=== PATIENT | male | born 1960 | race Caucasian/White ===

== ENCOUNTER 2017-03-20 08:52 | Day surgery (SDC) | payer OTHER ==
[~2017-03-20 08:52] MED LIST: LACTATED RINGERS 1,000 ML IV SCH
[2017-03-20 09:30] VITALS: RESP 18; TEMP 97
[2017-03-20] MEDS ORDERED: PROPOFOL 10 MG/ML 20 ML VIAL IV ONE (10:37)
--- NOTE | 2017-03-20 10:49 | P.GSHP ---
History of Present Illness H&P Date: 03/20/17 Chief Complaint: Colon cancer screening Patient here today for screening colonoscopy. He has not had one previously. No bowel related complaints. He has a family history of colon cancer in his grandmother. No history of colon polyps. Past Medical History Past Medical History: Hypertension Additional Past Medical History / Comment(s): CHRONIC LOWER BACK History of Any Multi-Drug Resistant Organisms: None Reported Past Surgical History: Appendectomy, Orthopedic Surgery, Tonsillectomy Additional Past Surgical History / Comment(s): ORIF TIB/FIB. Past Anesthesia/Blood Transfusion Reactions: No Reported Reaction Past Psychological History: No Psychological Hx Reported Smoking Status: Former smoker Past Alcohol Use History: None Reported Additional Past Alcohol Use History / Comment(s): QUIT ABOUT 10 YRS AGO, SMOKED FOR 30 YRS, 1PPD Past Drug Use History: None Reported Medications and Allergies Home Medications Medication Instructions Recorded Confirmed Type Metoprolol Succinate (ER) [Toprol 25 mg PO HS 03/17/17 03/17/17 History XL] Naproxen Sodium [Anaprox DS] 550 mg PO Q12HR PRN 03/17/17 03/17/17 History [place]-3 Acid Ethyl Esters [Lovaza] 1 gm PO BID 03/17/17 03/17/17 History Allergies Allergy/AdvReac Type Severity Reaction Status Date / Time No Known Allergies Allergy Verified 03/17/17 15:56 Surgical - Exam Vital Signs Temp Pulse Resp BP Pulse Ox 97 F L 104 H 18 129/84 98 03/20/17 09:21 03/20/17 09:21 03/20/17 09:21 03/20/17 09:21 03/20/17 09:21 Physical exam: General: Well-developed, well-nourished HEENT: Normocephalic, sclerae nonicteric Abdomen: Nontender, nondistended Extremities: No edema Neuro: Alert and oriented Assessment and Plan (1) Colon cancer screening Narrative/Plan: Will proceed with colonoscopy at this time. Current Visit: Yes Status: Acute Code(s): Z12.11 - ENCOUNTER FOR SCREENING FOR MALIGNANT NEOPLASM OF COLON SNOMED Code(s): 191640215
--- NOTE | 2017-03-20 11:06 | P.PCN ---
Date of Procedure: 03/20/17 Procedure(s) Performed: PREOPERATIVE DIAGNOSIS: Colon cancer screening POSTOPERATIVE DIAGNOSIS: Colon polyps, diverticulosis, internal hemorrhoids PROCEDURE: Colonoscopy with snare polypectomy ANESTHESIA: MAC SURGEON: Varghese Brooks M.D. SPECIMENS: Polyps ENDOSCOPIC PROCEDURE: The patient was placed on the endoscopy table in the left decubitus position. The Olympus colonoscope was inserted into the anus and passed under direct visualization to the base of the cecum. The appendiceal orifice was visualized. From that point the scope was slowly withdrawn inspecting all surfaces carefully. There were no neoplastic inflammatory or polypoid lesions throughout the cecum, ascending, transverse, and descending colon. In the sigmoid colon at 25 cm there was a pedunculated polyp that was removed using the snare with cautery technique. In the rectum proximally there was a grouping of 4 small polyps were all removed in a similar fashion and sent together. The remainder the rectum appeared normal. The patient had small internal hemorrhoids present without evidence of recent or active bleeding. The patient also had mild left-sided diverticulosis present. Digital rectal examination was normal. The patient was taken to the recovery room in stable condition per anesthesia guidelines. RECOMMENDATIONS: Await biopsy results. Follow-up colonoscopy 3-5 years.
[2017-03-20 11:35] VITALS: BP 153/76; PULSE 93
== END 2017-03-20 11:56 | disposition home or self-care (01) ==
LOC: ORWHC2ENDO 08:52
PROVIDERS: ATTEND Surgery
DX: Z12.11 Encounter for screening for malignant neoplasm of colon (principal); D12.5 Benign neoplasm of sigmoid colon; K57.30 Diverticulosis of large intestine without perforation or abscess without bleeding; D36.9 Benign neoplasm, unspecified site; K62.1 Rectal polyp; K64.8 Other hemorrhoids; I10 Essential (primary) hypertension; M54.5 Low back pain; G89.29 Other chronic pain; Z80.0 Family history of malignant neoplasm of digestive organs; Z87.891 Personal history of nicotine dependence; Z79.899 Other long term (current) drug therapy
CPT/HCPCS: 45385; 88305; J2704

== ENCOUNTER → 2019-05-06 | Outpatient (CLI) | payer OTHER ==
--- NOTE | 2019-05-06 17:56 | MR ---
EXAMINATION TYPE: MR lumbar spine wo con DATE OF EXAM: 05/06/2019 COMPARISON: NONE HISTORY: Low back pain into rt leg, DDD with Radiculopathy TECHNIQUE: Multiplanar, multisequence imaging of the lumbar spine is performed without IV contrast. FINDINGS: Sagittal images of the lumbar spine show vertebral body heights and alignment to appear sat isfactory. Multilevel disc desiccation is present moderately advanced disc space narrowing L3-L4 and L4-L5 levels. Moderate disc space narrowing at L2-L3 level. Mild 2 moderate multilevel anterior spur ring. The conus medullaris is normal in position and signal ending superior L1 level. The bone marro w signal intensity is overall heterogeneous with heterogeneous Modic type II endplate changes posteri or right L4-L5 level. Small hemangioma L3 vertebra sagittal image 8. Axial images at T12-L1 level is thought within normal limits. Axial images at L1-L2 level show mild/m oderate broad disc bulge effacing the anterior thecal sac on axial image 23. Axial images at L2-L3 level show moderate broad-based posterior disc protrusion effacing anterior the nils sac on axial image 18 and causing [id number] bilateral anterior inferior neural foraminal n arrowing encroaching near both exiting L2 nerves confirm sagittal image 12 and 3. Axial images at the L3-L4 level show moderate to severe broad disc bulge with [id number] facet degenerative change and ligamentum flavum hypertrophy. There is effacement of the anterior and supervisor plate pasting ior lateral thecal sac. There is moderate bilateral anterior inferior neural foraminal narrowing. Axial images at the L4-L5 level show moderate facet arthropathy and ligamentum flavum hypertrophy wit h moderate to advanced broad disc bulge. There is effacement of the anterior and posterior lateral th ecal sac along with mild to moderate left and moderate to advanced right-sided neural foraminal narro wing, encroachment along the right inferior L4 nerve is felt present sagittal image 12 and axial imag e 8. Axial images at the L5-S1 level show moderate facet arthropathy bilaterally. Spinal canal preserved. Bilateral neuroforamina patent. Paraspinal muscle bulk is preserved. No suspicious incidental retroperitoneal findings IMPRESSION: Multilevel degenerative changes with greatest findings noted L2-L3 through the L4-L5 leve ls as detailed above.
== END | disposition home or self-care (01) ==
LOC: RADMRIMAIN 16:45
PROVIDERS: ATTEND Physical Medicine & Rehabilitation
DX: M47.26 Other spondylosis with radiculopathy, lumbar region (principal); M43.16 Spondylolisthesis, lumbar region; M51.17 Intervertebral disc disorders with radiculopathy, lumbosacral region
CPT/HCPCS: 72148

== ENCOUNTER → 2022-07-21 | Outpatient (CLI) | payer OTHER ==
[2022-07-21 15:13] LABS: Partial Thromboplastin Time 23.6 sec (22.0-30.0); Prothrombin Time 10.6 sec (9.0-12.0)
--- NOTE | 2022-07-21 22:41 | CT ---
EXAMINATION TYPE: CT right knee - [facility] Protocol DATE OF EXAM: 07/21/2022 COMPARISON: None HISTORY: 62-year-old male RT knee pain. [facility] KNEE protocol CT DLP: 712 mGycm. Automated exposure control for dose reduction was used. TECHNIQUE: CT of the right knee for surgical planning purposes. Additional views through the bilatera l hips and bilateral ankles per the scanning protocol. Coronal and sagittal reconstructions performed . FINDINGS: In the pelvis, there is sigmoid diverticulosis and prostatomegaly up to 5.3 cm wide. Mild degenerativ e spurring of both hips. At the right knee, there is tricompartmental degenerative change with a small Johnston's cyst containing a 6 mm loose body. Moderate to large knee joint effusion is present. At the left ankle, there is partially visualized antegrade intramedullary nail extending to the dista l tibial metadiaphysis. IMPRESSION: 1. Tricompartmental OA right knee with a moderate to large joint effusion and a small Johnston's cyst. Imaging for surgical planning purposes. 2. Mild degenerative spurring of both hips. 3. Incidental: Sigmoid diverticulosis and prostatomegaly at 5.3 cm wide.
[2022-07-22 01:48] LABS: Appearance,Urine Cloudy (Clear); Bilirubin,Urine Negative (Negative); Blood,Urine Negative (Negative); Color,Urine Yellow (Yellow); Ketones,Urine Negative (Negative); Nitrite,Urine Negative (Negative); PH, Urine 7.5 (5.0-8.0); Specific Gravity,Urine 1.018 (1.001-1.030); Urobilinogen,Urine 0.2 (0.2,1.0)
[2022-07-22 01:55] LABS: Bacteria,Urine None Seen /HPF (None Seen)
[2022-07-22 02:20] LABS: Albumin 4.5 g/dL (3.8-4.9); Albumin/Globulin Ratio 2.14 (1.60-3.17); Anion Gap 11.7 mmol/L (10.00-18.00); BUN/Creat Ratio 21.57 Ratio (12.00-20.00); Blood Urea Nitrogen 15.1 mg/dL (9.0-27.0); Calcium 9.6 mg/dL (8.7-10.3); Carbon Dioxide 26.3 mmol/L (20.0-27.5); Globulin 2.1 g/dL (1.6-3.3); Non-African American GFR(CKD) 101.9 (60.0-200.0); Potassium 4.6 mmol/L (3.5-5.5); Total Bilirubin 0.2 mg/dL (0.30-1.20); Total Protein 6.6 g/dL (6.2-8.2)
[2022-07-22 02:50] LABS: HCT 45.8 % (39.6-50.0); HGB 15.6 g/dL (13.0-17.0); MCH 30.5 pg (27.0-32.0); MCHC 34.1 g/dL (32.0-37.0); MCV 89.5 fL (80.0-97.0); Mean Platelet Volume 10.2 fL (9.5-12.2); NRBC Per 100 WBC 0 /100 WBCS (0.0-0.0); Platelet Count 183 X 10*3/uL (140-440); RBC 5.12 X 10*6/uL (4.40-5.60); RDW 12.3 % (11.5-14.5); WBC 8.73 X 10*3/uL (4.50-10.00)
== END | disposition home or self-care (01) ==
LOC: RADCTMAIN 13:09
PROVIDERS: ATTEND Orthopaedic Surgery
DX: M17.11 Unilateral primary osteoarthritis, right knee (principal); M71.21 Synovial cyst of popliteal space [Baker], right knee; M16.0 Bilateral primary osteoarthritis of hip; M25.461 Effusion, right knee; I45.10 Unspecified right bundle-branch block; K57.30 Diverticulosis of large intestine without perforation or abscess without bleeding; N40.0 Benign prostatic hyperplasia without lower urinary tract symptoms; R94.31 Abnormal electrocardiogram [ECG] [EKG]
CPT/HCPCS: 80053; 81001; 85027; 85610; 85730; 87070; 93005

== ENCOUNTER → 2022-07-21 | Outpatient (CLI) | payer OTHER | END | disposition home or self-care (01) | LOC: LABPAT 13:57 | PROVIDERS: ATTEND Orthopaedic Surgery | DX: Z53.9 Procedure and treatment not carried out, unspecified reason (principal) ==

== ENCOUNTER 2022-08-15 08:55 | Day surgery (SDC) | payer OTHER ==
[~2022-08-15 08:55] MED LIST changes: +ACETAMINOPHEN TAB 500 MG TAB PO PRN; +DEXAMETHASONE SOD PHOSPHATE 10 MG/ML 1 ML VIAL IV PRN; +DEXAMETHASONE SOD PHOSPHATE 4 MG/ML 1 ML VIAL IV ONE; +DOCUSATE 100 MG CAP PO PRN; +FAMOTIDINE 20 MG/2 ML VIAL IVP PRN; +KETOROLAC 15 MG/ML 1 ML VIAL IVP PRN; -LACTATED RINGERS 1,000 ML IV SCH; +LIDOCAINE 1% (10MG/ML) FOR IV START INTRADERMA PRN; +MIDAZOLAM 2 MG/2 ML VIAL IV PRN; +ONDANSETRON 4 MG/2 ML VIAL IVP ONE; +ONDANSETRON 4 MG/2 ML VIAL IVP PRN; +TRANEXAMIC ACID IN NACL,ISO-OS 1,000 MG in SALINE 1 100ML.BAG IV PRN; +TRANEXAMIC ACID IN NACL,ISO-OS 1,000 MG in SALINE 1 100ML.BAG IVPB PRN; +oxyCODONE ER 10 MG TAB.ER.12H PO PRN
[2022-08-15] MEDS: LACTATED RINGERS 1,000 ML IV SCH (09:06)
[2022-08-15] MEDS ORDERED: fentaNYL (PF) 50 MCG/ML 2 ML AMP IVP ONE (09:49)
[2022-08-15] MEDS ORDERED: MIDAZOLAM 2 MG/2 ML VIAL IVP ONE (09:49)
--- NOTE | 2022-08-15 10:20 | P.ANPRN ---
Procedure Note - Anesthesia - Nerve Block Performed Right Adductor Canal Time Out Performed: Yes (09:48) Date of Procedure: 08/15/22 Procedure Start Time: :48 Procedure Stop Time: :53 Location of Patient: PreOp Indication: Acute Post-Operative Pain, Requested by Surgeon (Dr Martinez) Sedation Type: Sedate with meaningful contact maintained Preparation: Sterile Prep Position: Supine Catheter: None Needle Types: Pajunk Needle Gauge: 21 Ultrasound used to visualize needle placement: Yes Ultrasound used to observe medication spread: Yes Injectate: 0.5% Ropivacaine (see comment for volume) (20cc) Blood Aspirated: No Pain Paresthesia on Injection Noted: No Resistance on Injection: Normal Image Stored and Saved: Yes Events: Uneventful and Well Tolerated
--- NOTE | 2022-08-15 10:21 | P.ANPRN ---
Procedure Note - Anesthesia - Nerve Block Performed Right iPack Time Out Performed: Yes Date of Procedure: 08/15/22 Procedure Start Time: 09:54 Procedure Stop Time: 09:58 Location of Patient: PreOp Indication: Acute Post-Operative Pain, Requested by Surgeon (Dr Martinez) Sedation Type: Sedate with meaningful contact maintained Preparation: Sterile Prep Position: Supine Catheter: None Needle Types: Pajunk Needle Gauge: 21 Ultrasound used to visualize needle placement: Yes Ultrasound used to observe medication spread: Yes Injectate: 0.5% Ropivacaine (see comment for volume) (15cc +5cc PF Normal saline) Blood Aspirated: No Pain Paresthesia on Injection Noted: No Resistance on Injection: Normal Image Stored and Saved: Yes Events: Uneventful and Well Tolerated
[2022-08-15] MEDS: ROPIVACAINE/EPI/CLONIDINE/KET 50 ML SYRINGE MISCELLANE PRN ×2 (10:58→12:44)
[2022-08-15] MEDS ORDERED: NEOSTIGMINE 1 MG/ML 10 ML VIAL ONE (11:00)
[2022-08-15] MEDS ORDERED: fentaNYL (PF) 50 MCG/ML 2 ML AMP ONE (11:00)
[2022-08-15] MEDS ORDERED: ROCURONIUM 10 MG/ML (5 ML VIAL) IV ONE (11:00)
[2022-08-15] MEDS ORDERED: SODIUM CHLORIDE 0.9% (PF) 10 ML VIAL ONE (11:00)
[2022-08-15] MEDS ORDERED: PHENYLEPHRINE-0.9% NACL SYG 1,000 MCG/10 ML SYRINGE ONE (11:00)
[2022-08-15] MEDS ORDERED: LIDOCAINE 2% INJ 20 MG/ML (2 ML VIAL) ONE (11:00)
[2022-08-15] MEDS ORDERED: PROPOFOL 10 MG/ML 20 ML VIAL IV ONE (11:00)
[2022-08-15] MEDS ORDERED: SUCCINYLCHOLINE CHLORIDE 200 MG/10 ML VIAL IV ONE (11:00)
[2022-08-15] MEDS ORDERED: HYDROmorphone (PF) 1 MG/ML ONE (11:00)
[2022-08-15] MEDS ORDERED: GLYCOPYRROLATE 0.2 MG/ML 2 ML VIAL ONE (11:00)
[2022-08-15] MEDS ORDERED: ROPIVACAINE 5 MG/ML 30 ML VIAL ONE (11:00)
[2022-08-15] MEDS ORDERED: MIDAZOLAM 2 MG/2 ML VIAL ONE (11:00)
[2022-08-15] MEDS ORDERED: TRANEXAMIC ACID IN NACL,ISO-OS 1,000 MG/100 ML BAG ONE (11:00)
[2022-08-15] MEDS ORDERED: LACTATED RINGERS 1,000 ML IV ONE (13:08)
[2022-08-15] MEDS ORDERED: NALOXONE 0.4 MG/ML 1 ML VIAL IV PRN (13:32)
[2022-08-15] MEDS ORDERED: HYDROmorphone 0.5 MG/0.5 ML SYRINGE IVP PRN ×2 (13:32)
[2022-08-15] MEDS ORDERED: HYDROcodone/APAP 5-325MG 1 EACH TAB PO PRN ×2 (13:32)
[2022-08-15] MEDS ORDERED: HYDROmorphone 1 MG/ML 1 ML SYRINGE IVP PRN (13:32)
[2022-08-15] MEDS ORDERED: ONDANSETRON 4 MG/2 ML VIAL IVP PRN (13:32)
[2022-08-15] MEDS ORDERED: hydrOXYzine pamoate 25 MG CAP PO PRN (13:32)
--- NOTE | 2022-08-15 13:35 | P.OP ---
Date of Procedure: 08/15/22 Preoperative Diagnosis: Severe right knee osteoarthritis Postoperative Diagnosis: Same Procedure(s) Performed: Right total knee replacement Implants: 1. Adam Triathlon CR Femur Size #6 2. Clifford Triathlon [place] Tibial Base Size #6 3. Clifford Triathlon CS poly Size #9 4. Adam Triathlon all poly patella, Size #35 Anesthesia: RICKYA, regional Surgeon: Francisco Martinez Rubble Placer #1: Sharon Samuel Estimated Blood Loss (ml): 100 IV fluids (ml): 900 Pathology: none sent Condition: stable Disposition: PACU Indications for Procedure: I met with the patient preoperatively in the office setting and discussed treatment of their symptomatic knee arthritis. They failed a long course of nonsurgical treatment and elected to proceed with an elective total knee replacement. I discussed the potential risks and complications at length and gave them ample time to ask questions. Risks discussed included: risks from anesthesia, superficial site surgical infection, acute and/or chronic periprosthetic joint infection, delayed wound healing, drainage, wound necrosis, instability, stiffness, stiffness requiring manipulation and/or revision surgery, damage to local blood vessels or nerves, aseptic loosening of the implants, extensor mechanism issues including disruption, patellar maltracking, avascular necrosis etc., continued or worsened knee pain, generalized dissatisfaction with surgical outcome, need for revision surgery, an inability to regain preinjury level of function, DVT, PE, other medical complications, and possibly loss of life or limb. The patient voiced their understanding that while these are the most common complications other less common complications are possible. They provided both their verbal and written consent to go forward with surgery. Description of Procedure: The patient was identified in preoperative holding and the correct operative extremity was verified and marked with a marker. I reviewed the consent form with the patient at length. All of their questions were answered. The patient was given a block by anesthesia. They were then brought back to the operating room. They were transferred onto the operating room table where a general anesthetic, preoperative antibiotics, and tranexamic acid were administered by anesthesia. A tourniquet was applied to the proximal aspect of the operative extremity. The contralateral extremity was padded under the heel and secured to the operating room table with a nonsterile blue towel and tape. The ipsilateral arm was carefully draped across the patient's chest and secured with a pillow and foam. A post was applied over the lateral aspect of the ipsilateral thigh and a bolster was placed under the ipsilateral foot. I verified that the operative extremity was stable and the knee was flexed to 90. The operative extremity was then placed in a leg perez, nonsterile drapes were applied, and the extremity was prepped and draped sterilely in the standard sterile fashion. Prior to starting surgery timeout was performed identifying the correct patient, operative extremity, and procedure. The leg was then elevated, exsanguinated with an Esmarch bandage, and the tourniquet was inflated. An anterior midline incision was made sharply with a scalpel. Once I had dissected deep to the superficial fascial layer medial and lateral flaps were elevated. A medial parapatellar arthrotomy was created. Upon opening the knee joint there were diffuse arthritic changes in all 3 compartments. The anterior horn of the medial meniscus were sharply released and a medial release was performed around the posterior medial corner of the knee to facilitate retractor placement. The fat pad was excised with electrocautery. The patella was found to be severely arthritic and a provisional cut was made with a sagittal saw to facilitate mobilization of the extensor mechanism during the procedure. Remnants of the ACL and PCL were then excised from the notch. 4 mm pins were then placed within the incision in the medial distal femur and proximal tibia. Arrays were applied to the pins and I verified they were completely tightened. The knee was then registered with the Boxbe robot and manipulations in implant position were made to balance the knee and opitmize implant position. Using the Javad robotic saw all cuts were made in accordance with our plan. After all bony fragments had been removed the cuts were verified with the planar probe. The tibia was then subluxed forward and sized. The knee was brought into flexion and a lamina apprentice plumber was placed to allow removal of the meniscal remnants both medially and laterally as well as posterior osteophytes. Local anesthetic was then infiltrated around the joint capsule. Trial implants were then placed within the knee. Range of motion and collateral ligament tension was then evaluated. Adjustments in implant size and position were then made accordingly. Once the knee was felt to be appropriately balanced the Javad pins were removed. The patella was then recut, sized, and punched. A trial patellar button was then placed. With the trial components in place, the patella tracked midline. The femur was then drilled and the trial component removed. The trial tibial component was then appropriately rotated, pinned, and prepared for the keel. All trial components were then removed from the knee. The knee was thoroughly irrigated with pulsatile lavage. Cement was prepared via vacuum mixing in a bowl on the back table. I then hand pressurized cement into the femur and tibia and placed the implants beginning with the tibial base tray and poly liner, femoral component, and finally the patellar button. All extruded cement was removed including from the pin sites. Once the cement had hardened the knee was evaluated one final time with the final polyethylene liner in place. The knee had full extension and flexion and felt stable to varus and valgus stress throughout the arc of motion. The tourniquet was released and with the tourniquet down the patella tracked midline. All bleeders were controlled with electrocautery. The knee was then soaked for 3 minutes with a dilute Betadine soak. The knee was thoroughly irrigated using 3 L of sterile saline and pulsatile lavage. The extensor mechanism was then reapproximated using pop off Vicryl sutures followed by a running barbed suture. The knee was then closed in layers with a 0 strata fix for the deep fascial layer, 2-0 strata fix for the superficial subcutaneous layer and Monocryl and Steri-Strips for the skin. A sterile dressing was applied. I verified that all instrument, sponge, and sharp counts were correct. The patient was then transferred off the operating room table, extubated, and brought to recovery having tolerated the procedure well. Sharon Samuel PA-C was required as a skilled human resources office assistant due to the complexity of the procedure for patient positioning, draping, retraction, placement of hardware, and closure of wound. PLAN: The patient can weight-bear as tolerated on the operative extremity. DVT prophylaxis with aspirin 81 mg twice a day based on preoperative risk stratification. They can be discharged as long as they passed physical therapy and her pain is controlled. Follow-up in the office in 2 weeks for wound check and x-rays of the knee including an AP and lateral.
[2022-08-15] MEDS ORDERED: oxyCODONE-APAP 5-325MG 1 EACH TAB PO PRN (13:41)
[2022-08-15] MEDS ORDERED: LACTATED RINGERS 1,000 ML IV SCH (13:45)
[2022-08-15] MEDS: HYDROmorphone 0.5 MG/0.5 ML SYRINGE IVP PRN ×2 (14:15→14:51)
--- NOTE | 2022-08-15 15:10 | XR ---
EXAMINATION TYPE: XR knee limited RT DATE OF EXAM: 08/15/2022 COMPARISON: NONE HISTORY: 62-year-old male evaluation for postoperative abnormality in alignment. TECHNIQUE: 2 views FINDINGS: Images show placement of right total knee arthroplasty. Both distal femoral and proximal ti bial components of the prosthesis are well seated without periprosthetic fracture. Anterior soft tiss ue swelling with soft tissue air as well as intra-articular air related to recent operation. IMPRESSION: Uncomplicated postoperative appearance right total knee arthroplasty.
[2022-08-15] MEDS: ASPIRIN 81 MG PO SCH (19:54)
[2022-08-15] MEDS ORDERED: SENNOSIDES-DOCUSATE SODIUM 1 EACH TAB PO SCH (21:00)
[2022-08-16] MEDS: LACTATED RINGERS 1,000 ML IV SCH (02:16)
[2022-08-16 07:58] LABS: Basophils % (A) 0 %; Eosinophils % (A) 0 %; HCT 39.9 % (39.0-53.0); HGB 13.6 gm/dL (13.0-17.5); Lymphocytes # (A) 3.3 k/uL (1.0-4.8); Lymphocytes % (A) 23 %; MCH 29.8 pg (25.0-35.0); MCV 87.5 fL (80.0-100.0); Mean Platelet Volume 7.3; Monocytes # (A) 0.8 k/uL (0-1.0); Monocytes % (A) 6 %; Neutrophils % (A) 70 %; Platelet Count 167 k/uL (150-450); RBC 4.56 m/uL (4.30-5.90); WBC 14.3 k/uL (3.8-10.6)
[2022-08-16 08:20] VITALS: BP 143/78; PULSE 121; RESP 16; TEMP 98.2
[2022-08-16] MEDS: ASPIRIN 81 MG PO SCH (08:34)
--- NOTE | 2022-08-16 09:01 | P.DS ---
Providers Expected date of discharge: 08/16/22 Attending physician: Francisco Martinez Consults: 08/15/22 13:37 Consult Physician Routine Consulting Provider: Jose Bettencourt Consult Reason/Comments: medical management Do you want consulting provider notified?: Yes Primary care physician: Talya Cage - Discharge Diagnosis(es) (1) Osteoarthritis of right knee Current Visit: Yes Status: Acute (2) Status post total right knee replacement Current Visit: Yes Status: Acute Hospital Course: This is a 62-year-old male with known history of degenerative arthritis of the right knee. The patient presented for evaluation as an outpatient. After discu ssion and consideration patient elects to proceed with total knee arthroplasty. The patient is seen preoperatively by Dr. Martinez and medically cleared for surgery by their primary care physician. Patient is admitted to [facility] on 08/15/2022 for total knee arthroplasty. The procedure is performed without complication or sequelae. The patient is doing well postoperatively. Labs and vital signs are stable on day of discharge. On day of discharge patient's knee incision is healing well. There is minimal erythema. There is no drainage noted at this time. There is minimal soft tissue swelling to the knee. Patient has full foot and ankle motion without difficulty or pain. Calf is soft and nontender to palpation. Neurovascular status to the right lower extremity is intact. Patient is discharged home in good condition. Please see [facility] for accurate list of home medications. Plan - Discharge Summary Discharge Rx Participant: Yes New Discharge Prescriptions: New Aspirin 81 mg PO BID 30 Days #60 tab Docusate [Colace] 100 mg PO BID #60 capsule Omeprazole 40 mg PO DAILY 30 Days #30 cap oxyCODONE HCL/ACETAMINOPHEN [Percocet 5-325 mg] 1 tab PO Q6HR PRN 7 Days #28 tab PRN Reason: Pain Diclofenac Sodium [Voltaren] 75 mg PO BID 30 Days #60 tab No Action Naproxen Sodium [Anaprox DS] 550 mg PO Q12HR PRN PRN Reason: Pain Metoprolol Succinate (ER) [Toprol XL] 25 mg PO HS Discharge Medication List Metoprolol Succinate (ER) [Toprol XL] 25 mg PO HS 03/17/17 [History] Naproxen Sodium [Anaprox DS] 550 mg PO Q12HR PRN 01/09/18 [History] Aspirin 81 mg PO BID 30 Days #60 tab 08/15/22 [Rx] Diclofenac Sodium [Voltaren] 75 mg PO BID 30 Days #60 tab 08/15/22 [Rx] Docusate [Colace] 100 mg PO BID #60 capsule 08/15/22 [Rx] Omeprazole 40 mg PO DAILY 30 Days #30 cap 08/15/22 [Rx] oxyCODONE HCL/ACETAMINOPHEN [Percocet 5-325 mg] 1 tab PO Q6HR PRN 7 Days #28 tab 08/15/22 [Rx] Follow up Appointment(s)/Referral(s): [facility] [[facility]] - 1-2 Days ([facility] will call you to schedule your in home physical therapy visits. ) Francisco Martinez MD [Medical Doctor] - 2 Weeks Activity/Diet/Wound Care/Special Instructions: Weight bear to tolerance on operative extremity with a walker. Keep operative dressing in place until follow-up in the office. Call the office if dressing becomes saturated or falls off. May shower over dressing. Take pain medication as prescribed. Take aspirin 81mg twice a day x 4 weeks for blood clot prevention. Follow-up in the office at [facility] in two weeks. Call the office with any questions or concerns, Discharge Disposition: HOME WITH HOME HEALTH SERVICES
[2022-08-16] MEDS ORDERED: NAPROXEN 250 MG TAB PO PRN (10:09)
--- NOTE | 2022-08-16 10:46 | P.CONS ---
History of Present Illness - Reason for Consult Consult date: 08/16/22 - History of Present Illness Danilo Faria, he is a 62-year-old male who was admitted to [facility] by Dr. Martinez and underwent right total knee arthroplasty on 08/15/2022 for severe right knee osteoarthritis, patient was admitted to the surgical floor after surgery, medical consultation was requested for management while hospitalized, patient follows with Dr. Cage for primary care physician. His past medical history significant for history of hypertension, history of hyperlipidemia, and history of osteoarthritis, his past surgical history is significant for tonsillectomy and appendectomy, and history of left tibia and fibula surgery. Social history patient used to smoke he quit in 2012, he does not drink alcohol or use any kind of illicit drugs. On review of systems patient is alert and oriented 3 in no apparent distress he is complaining of mild pain in the right lower extremity otherwise he denies any complaints there is no fever or chills no headache or dizziness, no chest pain no shortness of breath no cough no nausea or vomiting no abdominal pain no diarrhea no blood in the stools no burning with urination no frequency or urgency no hematuria. There is no weakness or numbness in any of the extremities, there is no change in vision, speech or gait. Past Medical History Past Medical History: Hypertension Additional Past Medical History / Comment(s): CHRONIC LOWER BACK History of Any Multi-Drug Resistant Organisms: None Reported Past Surgical History: Appendectomy, Orthopedic Surgery, Tonsillectomy Additional Past Surgical History / Comment(s): ORIF TIB/FIB. Past Anesthesia/Blood Transfusion Reactions: No Reported Reaction Additional Past Anesthesia/Blood Transfusion Reaction / Comm: no blood tx hx Past Psychological History: No Psychological Hx Reported Smoking Status: Former smoker Past Alcohol Use History: None Reported Additional Past Alcohol Use History / Comment(s): QUIT ABOUT 10 YRS AGO, SMOKED FOR 30 YRS, 1PPD Past Drug Use History: None Reported - Past Family History Father Family Medical History: No Reported History Medications and Allergies Home Medications Medication Instructions Recorded Confirmed Type Metoprolol Succinate (ER) [Toprol 25 mg PO HS 03/17/17 08/15/22 History XL] Naproxen Sodium [Anaprox DS] 550 mg PO Q12HR PRN 03/17/17 08/15/22 History Aspirin 81 mg PO BID 30 Days #60 tab 08/15/22 Rx Diclofenac Sodium [Voltaren] 75 mg PO BID 30 Days #60 tab 08/15/22 Rx Docusate [Colace] 100 mg PO BID #60 capsule 08/15/22 Rx Omeprazole 40 mg PO DAILY 30 Days #30 cap 08/15/22 Rx oxyCODONE HCL/ACETAMINOPHEN 1 tab PO Q6HR PRN 7 Days #28 tab 08/15/22 Rx [Percocet 5-325 mg] Allergies Allergy/AdvReac Type Severity Reaction Status Date / Time No Known Allergies Allergy Verified 08/15/22 09:14 Physical Exam Vitals: Vital Signs Temp Pulse Pulse Resp BP BP Pulse Ox 08/16/22 07:51 98.2 F 121 H 16 143/78 93 L 08/16/22 02:04 99.0 F 115 H 18 155/86 96 08/15/22 20:00 15 08/15/22 19:48 98.2 F 108 H 18 154/94 96 08/15/22 19:42 109 H 160/82 95 08/15/22 19:26 103 H 142/92 95 08/15/22 19:11 101 H 153/84 95 08/15/22 17:41 102 H 136/87 94 L 08/15/22 17:26 104 H 138/96 93 L 08/15/22 17:11 105 H 164/111 92 L 08/15/22 16:56 115 H 163/95 92 L 08/15/22 16:41 112 H 152/80 92 L 08/15/22 16:26 108 H 148/92 93 L 08/15/22 16:11 109 H 166/103 93 L 08/15/22 15:15 98 16 138/83 100 08/15/22 14:45 103 H 16 112/72 100 08/15/22 14:30 104 H 16 126/75 100 08/15/22 14:15 108 H 16 115/72 98 08/15/22 14:03 106 H 16 117/74 96 08/15/22 13:48 107 H 18 119/70 95 08/15/22 13:33 97.4 F L 104 H 23 117/62 95 Intake and Output 08/15/22 08/16/22 08/16/22 22:59 06:59 14:59 Intake Total 1105 1320 Output Total 400 1950 Balance 705 -630 Intake: IV 300 Intake, IV Titration 325 Amount Lactated Ringers 1,000 ml 325 @ 100 mls/hr IV .Q10H JOELLE Rx#:[id number] Oral 480 1320 Output: Urine 400 1950 Other: Voiding Method Urinal # Voids 1 Weight 104.3 kg In general patient is alert and oriented x 3 in no distress HEENT head normocephalic and atraumatic Neck is supple no JVD no goiter no lymphadenopathy no carotid bruit Chest examination is clear to auscultation no crackles no wheezing Cardiac exam reveals regular heart sounds S1 and S2 no gallops no murmurs Abdomen is soft nontender no organomegaly with normal bowel sounds Extremity exam reveals no edema no cyanosis or clubbing Neurological examination reveals no gross focal deficits Results CBC & Chem 7: 08/16/22 07:14 Labs: Abnormal Lab Results - Last 24 Hours (Table) 08/16/22 Range/Units 07:14 WBC 14.3 H (3.8-10.6) k/uL Neutrophils # 10.0 H (1.3-7.7) k/uL Assessment and Plan Plan: Severe osteoarthritis of the right knee status post right total knee arthroplasty on 08/15/2022, pain management and DVT prophylaxis as per orthopedic protocol Underlying history of hypertension Underlying history of hyperlipidemia Underlying history of osteoarthritis Patient was seen and examined on the medical floor Home medications reviewed and reordered For DVT prophylaxis he is maintained on aspirin 81 mg twice daily Plan is for discharge to home today Patient is stable from medical standpoint.
[2022-08-16] MEDS ORDERED: METOPROLOL SUCCINATE (ER) 25 MG TAB.ER.24H PO SCH (21:00)
== END 2022-08-16 11:07 | disposition home health service (06) ==
LOC: OR 08:55 → 4SSUR 15:25 → OR 08-16 11:07
PROVIDERS: ATTEND Orthopaedic Surgery
DX: M17.11 Unilateral primary osteoarthritis, right knee (principal); G89.18 Other acute postprocedural pain; E78.5 Hyperlipidemia, unspecified; I10 Essential (primary) hypertension; K21.9 Gastro-esophageal reflux disease without esophagitis; Z90.89 Acquired absence of other organs; Z90.49 Acquired absence of other specified parts of digestive tract; Z87.891 Personal history of nicotine dependence; Z79.899 Other long term (current) drug therapy
CPT/HCPCS: 97161; 64447; 64999; 85025; 73560; 27447; C1776; C1713; C1751; J2250; J0330; J1100; J2710; J0690 ×2; J2405; J3010; J1170 ×3; J2795; J1885; J2370; J2704; J2001

== ENCOUNTER → 2022-11-21 | Outpatient (CLI) | payer OTHER ==
--- NOTE | 2022-11-21 09:26 | MR ---
EXAMINATION TYPE: MR lumbar spine wo con DATE OF EXAM: 11/21/2022 7:47 AM CLINICAL INDICATION:Male, 62 years old with history of M51.17 RADICULOPATHY, Low back pain into rashid l ower extremity COMPARISON: 05/06/2019 TECHNIQUE: Multi planar, multi sequence imaging was performed utilizing: T1-weighted, T2-weighted, a nd turbo inversion recovery imaging of the lumbar spine. IV Contrast: None. FINDINGS: For convention there appears to be a transitional vertebrae in the lower lumbar spine with transition al vertebrae and transitional right transverse process of L6. Alignment: The lumbar vertebral bodies have preserved heights and alignment. Cord: The conus medullaris and the distal spinal cord appear unremarkable with regards to their signa l intensity and morphology. Bones/Discs: Multilevel disc degeneration changes with osteophyte formation, disc space narrowing, Sc hmorl's nodes, and facet joint arthropathy. Mild bony edema on inversion recovery sequences most pron ounced at the adjoining endplates of L3-L4 and L4-L5. Multilevel disc desiccation is present. T12-L1: No evidence of significant spinal canal stenosis or neural foraminal stenosis. L1-L2: No evidence of significant spinal canal stenosis or neural foraminal stenosis. L2-L3: Disc bulge and facet joint arthropathy result in mild spinal canal and mild bilateral neural f oraminal stenosis. L3-L4: Disc bulge and facet joint arthropathy result in mild spinal canal and mild bilateral neural f oraminal stenosis. L4-L5: Disc bulge with left central disc protrusion resulting in moderate to severe spinal canal sten osis. There is facet joint arthropathy with moderate right and severe left neural foraminal cyst L5-L6: Disc bulge with possible central disc protrusion and facet joint arthropathy result in severe spinal canal and severe right and moderate severe left neural foraminal stenosis. L6 is S1: No significant spinal canal or neural foraminal stenosis in the remainder of the visualized levels. Other findings: None. IMPRESSION: 1. L5-L6 disc protrusion with disc bulge and facet joint arthropathy with severe spinal canal stenos is and severe right neural foraminal stenosis. This has progressed from prior. 2. L4-L5 moderate to severe spinal canal stenosis from left central disc protrusion/osteophyte and f acet joint arthropathy. There is severe left neural foraminal stenosis. This is similar to prior.
== END | disposition home or self-care (01) ==
LOC: RADMRIMAIN 06:48
PROVIDERS: ATTEND Physical Medicine & Rehabilitation
DX: M51.17 Intervertebral disc disorders with radiculopathy, lumbosacral region (principal); M47.26 Other spondylosis with radiculopathy, lumbar region; M99.73 Connective tissue and disc stenosis of intervertebral foramina of lumbar region; M43.16 Spondylolisthesis, lumbar region; M48.061 Spinal stenosis, lumbar region without neurogenic claudication
CPT/HCPCS: 72148